=== PATIENT | female | born 1985 | race Caucasian/White ===

== ENCOUNTER 2018-02-13 00:21 | Emergency (ER) | payer OTHER ==
[2018-02-13 01:02] VITALS: BP 144/98; PULSE 72; TEMP 97.8; BMI 25.6
--- NOTE | 2018-02-13 01:05 | PDOC ---
History of Present Illness - General Chief Complaint: Respiratory Stated Complaint: S.O.B. Time Seen by Provider: 02/13/18 00:57 - History of Present Illness Initial Comments: 02/13/18 01:21 The patient is a 32 year old female with a history of Gallstone Pancreatitis s/ p cholecystectomy who presents for evaluation of abdominal pain. The patient notes that she began experiencing severe epigastric abdominal pain earlier this evening with associated SOB due to the severe abdominal pain prompting her presentation to the ED for further evaluation. She notes that her symptoms are similar to her prior episodes of pancreatitis. She notes that she has been drinking more alcohol lately as well. She states that her symptoms have significantly improved on presentation to the ED and is currently asymptomatic. She otherwise denies fevers, chills, SOB, chest pain, nausea, vomiting, or changes with urination or bowel movements. Past History - Past Medical History Allergies/Adverse Reactions: Allergies Allergy/AdvReac Type Severity Reaction Status Date / Time No Known Allergies Allergy Verified 02/13/18 01:02 Home Medications: Ambulatory Orders Ondansetron [Zofran Odt -] 4 mg SL TID #10 od.tablet 11/07/15 GI Disorders: Yes (pancreatitis/gallstones) - Immunization History Immunization Up to Date: Yes - Suicide/Smoking/Psychosocial Hx Smoking History: Never smoked Have you smoked in the past 12 months: No Information on smoking cessation initiated: No Hx Alcohol Use: No Drug/Substance Use Hx: No Substance Use Type: None Review of Systems - Review of Systems Comments:: 02/13/18 01:24 Constitutional: No fevers, chills, fatigue, malaise HEENT: No Rhinorrhea, nasal congestion, visual changes Cardiovascular: No chest pain, syncope, palpitations, lightheadedness Respiratory: No Cough, SOB, Hemoptysis, Gastrointestinal: Abdominal pain. No Nausea, Vomiting, Constipation, Diarrhea, Melena Genitourinary: No Dysuria, Frequency, Urgency, Hesitancy, Hematuria, Flank pain Musculoskeletal: No Myalgia, arthralgia Skin: No rashes, itching, bruising, pallor Neurologic: No Headache, Dizziness, Numbness, Weakness, or Tingling Psychiatric: No Hallucinations. No SI or HI *Physical Exam - Vital Signs Last Vital Signs Temp Pulse Resp BP Pulse Ox 97.8 F 72 18 144/98 100 02/13/18 00:50 02/13/18 00:50 02/13/18 00:50 02/13/18 00:50 02/13/18 00:50 - Physical Exam Comments: 02/13/18 01:25 General Appearance: Nourished. No Apparent Distress HEENT: EOMI, IRVIN. No Pharyngeal Erythema, Tonsillar Exudate, Tonsillar Erythema Neck: No Cervical Lymphadenopathy Respiratory/Chest: Lungs Clear, Normal Breath Sounds. No Crackles, Rales, Rhonchi, Wheezing Cardiovascular: Regular Rhythm, Regular Rate. No Murmur, Gallops, Rubs Gastrointestinal/Abdominal: Normal Bowel Sounds, Soft. No Guarding, Rebound, Tenderness Musculoskeletal: No CVA Tenderness Extremity: Normal Capillary Refill Integumentary: Normal Color, Dry, Warm Neurologic: Fully Oriented, Alert, Normal Mood/Affect, Normal Response, ED Treatment Course - LABORATORY CBC & Chemistry Diagram: 02/13/18 01:31 02/13/18 01:31 Medical Decision Making - Medical Decision Making 02/13/18 01:25 The patient is a 32 year old female with a history of Gallstone Pancreatitis s/ p cholecystectomy who presents for evaluation of abdominal pain. Differential includes but is not limited to: pancreatitis, gastritis, infectious, metabolic derangement. Given the patient's history and physical exam, we will obtain a cbc, cmp, lipase to evaluate further for possible etiologies. We will treat in the meantime with iv fluids and continue to monitor and reassess while here in the ED. 02/13/18 02:51 CBC, cmp, lipase are unremarkable. The patient continues to be asymptomatic. We are comfortable discharging the patient home at this time with GI follow up. We discussed the results, plan, and return precautions with the patient who voiced understanding and is agreeable with the plan. *DC/Admit/Observation/Transfer Diagnosis at time of Disposition: Abdominal pain Qualifiers: Abdominal location: unspecified location Qualified Code(s): R10.9 - Unspecified abdominal pain - Discharge Dispostion Disposition: HOME Condition at time of disposition: Stable Decision to Admit order: No - Referrals Referrals: Clemente Royal MD [Primary Care Provider] - Mo Mondragon MD [Staff Physician] - - Patient Instructions Printed Discharge Instructions: DI for Abdominal Pain-Adult Additional Instructions: Please return to the ER if you experience concerning or worsening symptoms including worsening abdominal pain, vomiting or fevers. Your lab results were normal here in the ER. It is important that you follow up with our GI specialist Dr. Mondragon within 2-3 days to discuss your ER visit and further management of your symptoms. - Post Discharge Activity
[2018-02-13] MEDS ORDERED: SODIUM CHLORIDE 1,000 ML IV STA (01:06)
--- NOTE | 2018-02-13 01:11 | PDOC ---
Attending Attestation - Resident Resident Name: To Mazariegos - ED Attending Attestation I have performed the following: I have examined & evaluated the patient, The case was reviewed & discussed with the resident, I agree w/resident's findings & plan, Exceptions are as noted - HPI HPI: 02/15/18 14:46 Ms Cabrales is a 32 yo F h/o gallstone pancreatitis s/p cholecystectomy who presents for evaluation of abdominal pain. Pt developed severe epigastric abdominal pain earlier this evening. These symptoms are similar to her prior symptoms when she developed pancreatitis. (+) alcohol use. Since presenting to the ER, her symptoms have resolved. No fevers, chills, nausea, vomiting, or diarrhea. - Physicial Exam PE: 02/13/18 01:11 GENERAL: The patient is in no acute distress. LUNGS: Breath sounds equal, clear to auscultation bilaterally. No wheezes, and no crackles. HEART:Regular rate and rhythm, normal S1 and S2 without murmur, rub or gallop. ABDOMEN: Soft, nontender to palpation EXTREMITIES: Normal range of motion, no edema. No clubbing or cyanosis. No erythema, or tenderness. NEUROLOGICAL: Cranial nerves II through XII grossly intact. Normal speech. No focal neurological deficits. MUSCULOSKELETAL: Back non-tender to palpation, no CVA tenderness SKIN: Warm, Dry, normal turgor, no rashes or lesions noted. - Medical Decision Making 02/13/18 01:25 The patient is a 32 year old female with a history of Gallstone Pancreatitis s/ p cholecystectomy who presents for evaluation of abdominal pain. Labs nml Pt symptoms have resolved Pt will be discharged to home
[2018-02-13 01:59] LABS: BASO % 1.3 % (0-2.0); HEMATOCRIT 39.8 % (32.4-45.2); HEMOGLOBIN 13.2 GM/dL (10.7-15.3); LYMPH % 30.5 % (8-40); MCH 28.9 pg (25.7-33.7); MCHC 33.2 g/dl (32.0-36.0); MEAN CELL VOLUME 87.2 fl (80-96); MEAN PLT VOLUME 9.2 fl (7.5-11.1); MONO % 9.8 % (3.8-10.2); NEUT % 52.4 % (42.8-82.8); PLATELET COUNT 252 K/MM3 (134-434); RBC 4.57 M/mm3 (3.60-5.2); RDW 13.9 % (11.6-15.6); WHITE BLOOD COUNT 5.1 K/mm3 (4.0-10.0)
[2018-02-13 02:22] LABS: ALBUMIN 3.6 g/dl (3.4-5.0); ANION GAP 5 (8-16); BLOOD UREA NITROGEN 17 mg/dL (7-18); CALCIUM 8.2 mg/dL (8.5-10.1); CHLORIDE 106 mmol/L (98-107); CO2 30 mmol/L (21-32); CREATININE 0.8 mg/dL (0.55-1.02); GLUCOSE,RANDOM 85 mg/dL (74-106); LIPASE 107 U/L (73-393); POTASSIUM 3.4 mmol/L (3.5-5.1); SGOT/AST 23 U/L (15-37); SGPT/ALT 18 U/L (12-78); SODIUM 141 mmol/L (136-145)
[2018-02-13 02:24] LABS: ALK PHOS 61 U/L (45-117); BILIRUBIN,TOTAL 0.3 mg/dL (0.2-1.0); TOT PROT 7.5 g/dl (6.4-8.2)
== END 2018-02-13 02:54 | disposition home or self-care (01) ==
LOC: JER 00:21
PROC: 3E0337Z Introduction of Electrolytic and Water Balance Substance into Peripheral Vein, Percutaneous Approach (ICD-10-PCS; principal; 2018-02-13)
DX: R10.9 Unspecified abdominal pain (principal); Z90.49 Acquired absence of other specified parts of digestive tract
CPT/HCPCS: 36415; 80053; 83690; 85025; 99282-25; J7030

== ENCOUNTER 2018-11-15 13:00 | Emergency (ER) | payer OTHER ==
[2018-11-15 13:17] VITALS: BMI 26.5
--- NOTE | 2018-11-15 13:54 | PDOC ---
History of Present Illness - General Chief Complaint: Rash Stated Complaint: ALLERGIC REACTION Time Seen by Provider: 11/15/18 13:26 History Source: Patient Exam Limitations: Clinical Condition - History of Present Illness Initial Comments: 11/15/18 13:49 Patient 23 weeks present with complaint of five-day history of nasal congestion, body aches,intermittent abdominal pains, runny nose and feeling of flu like symptoms. Patient denies any fevers. Patient reports she was seen by OB /[facility] [employer] [employer]PER[facility] 4 days ago for symptoms and was told to take Tylenol and increase fluid intake but now have diffuse red rashes all over her body after taking Tylenol. Patient denies itchiness to rash. Patient denies shortness of breath, choking sensation, tongue or throat swelling. Patient denies any other symptoms 11/15/18 14:30 Timing/Duration: other (5 days) Past History - Past Medical History Allergies/Adverse Reactions: Allergies Allergy/AdvReac Type Severity Reaction Status Date / Time No Known Allergies Allergy Verified 11/15/18 13:13 Home Medications: Ambulatory Orders Hydrocortisone 2.5% Lotion [Hytone 2.5% Lotion -] 1 applic TP BID PRN 7 Days #1 bottle 11/15/18 COPD: No GI Disorders: Yes (pancreatitis/gallstones) - Immunization History Immunization Up to Date: Yes - Suicide/Smoking/Psychosocial Hx Smoking History: Never smoked Have you smoked in the past 12 months: No Hx Alcohol Use: No Drug/Substance Use Hx: No Substance Use Type: None Review of Systems - Review of Systems Able to Perform ROS?: Yes Is the patient limited [place]ander proficient: No Constitutional: No: Chills, Fever, Malaise HEENTM: Yes: Symptoms Reported, See HPI, Nose Congestion, Throat Pain. No: Eye Pain, Blurred Vision, Tearing, Recent change in vision, Double Vision, Cataracts , Ear Pain, Ocular Prothesis, Ear Discharge, Nose Pain, Tinnitus, Nose Bleeding , Hearing Loss, Throat Swelling, Mouth Pain, Dental Problems, Difficulty Swallowing, Mouth Swelling, Other Respiratory: No: Symptoms reported, See HPI, Cough, Orthopnea, Shortness of Breath, SOB with Exertion, SOB at Rest, Stridor, Wheezing, Productive cough, Hemoptysis, Other Cardiac (ROS): No: Symptoms Reported, See HPI, Chest Pain, Edema, Irregular Heart Rate, Lightheadedness, Palpitations, Syncope, Chest Tightness, Other ABD/GI: No: Constipated, Diarrhea, Nausea, Vomiting, Abdominal cramping Integumentary: Yes: See HPI, Rash (red rashes all over the body). No: Bruising , Pruritus, Sweating Neurological: No: Numbness, Paresthesia, Dizziness All Other Systems: Reviewed and Negative *Physical Exam - Vital Signs Last Vital Signs Temp Pulse Resp BP Pulse Ox 98.2 F 92 H 20 113/68 100 11/15/18 13:16 11/15/18 13:16 11/15/18 13:16 11/15/18 13:16 11/15/18 13:16 - Physical Exam Comments: 11/15/18 13:52 GENERAL: Well developed, well nourished. Awake and alert. No acute distress. HEENT: Normocephalic, atraumatic. PERRLA, EOMI. No conjunctival pallor. Sclera are non-icteric. Moist mucous membranes. Oropharynx is clear. NECK: Supple. Full ROM. CARDIOVASCULAR: Regular rate and rhythm. No murmurs, rubs, or gallops. Distal pulses are 2+ and symmetric. PULMONARY: No evidence of respiratory distress. Lungs clear to auscultation bilaterally. No wheezing, rales or rhonchi. ABDOMINAL: Soft. Non-tender. Non-distended. No rebound or guarding. No organomegaly. Normoactive bowel sounds. MUSCULOSKELETAL Normal range of motion at all joints. EXTREMITIES: No cyanosis. No clubbing. No edema. No calf tenderness. SKIN: Diffuse maculopapular erythematous rash all over the body with no excoriations.Warm and dry. Normal capillary refill. NEUROLOGICAL: Alert, awake, appropriate. Gait is normal without ataxia. PSYCHIATRIC: Cooperative. Good eye contact. Appropriate mood General Appearance: Yes: Nourished, Appropriately Dressed. No: Apparent Distress Moderate Sedation - Procedure Monitoring Vital Signs: Procedure Monitoring Vital Signs Temperature 98.2 F 11/15/18 13:16 Pulse Rate 92 H 11/15/18 13:16 Respiratory Rate 20 11/15/18 13:16 Blood Pressure 113/68 11/15/18 13:16 O2 Sat by Pulse Oximetry (%) 100 11/15/18 13:16 Medical Decision Making - Medical Decision Making 11/15/18 13:53 Patient 23 weeks present with complaint of diffuse red rashes with outpatient follow-up at about after taking Tylenol 3 days ago status post going to [facility] office with URI symptoms and advised to take Tylenol. Exam significant for diffuse global maculopapular erythematous rash without excoriations. No pharyngeal erythema on exam. No evidence of anaphylactic reaction acute distress. Rapid strep ordered to rule out strep pharyngitis 11/15/18 14:34 Rapid strep negative. Patient is stable for discharge to labor floor to monitor baby due to complaint of intermittent abdominal pain. Rx for topical hydrocortisone sent to pharmacy for rash with dermatology follow-up. *DC/Admit/Observation/Transfer Diagnosis at time of Disposition: Dermatitis Abdominal pain Qualifiers: Abdominal location: unspecified location Qualified Code(s): R10.9 - Unspecified abdominal pain Qualifiers: Weeks of gestation: 23 weeks Qualified Code(s): Z3A.23 - 23 weeks gestation of - Discharge Dispostion Disposition: HOME Condition at time of disposition: Stable Decision to Admit order: No - Prescriptions Prescriptions: Hydrocortisone 2.5% Lotion [Hytone 2.5% Lotion -] 1 applic TP BID PRN 7 Days #1 bottle PRN Reason: rash - Referrals Referrals: Rosamaria Negrete MD [Staff Physician] - - Patient Instructions Additional Instructions: Your strep test was negative. Use medication as prescribed as needed for rash. Stopped taking Tylenol. Increase fluid intake. Follow-up with primary care - Post Discharge Activity
[2018-11-15 16:11] LABS: URINE APPEARANCE CLEAR; URINE BILIRUBIN NEGATIVE (<2.0 mg/dL); URINE COLOR YELLOW; URINE GLUCOSE (UA) NEGATIVE (NEGATIVE); URINE KETONE 1+ (NEGATIVE); URINE LEUK ESTERASE NEGATIVE (NEGATIVE); URINE NITRITE NEGATIVE (NEGATIVE); URINE PROTEIN NEGATIVE (NEGATIVE); URINE UROBILINOGEN NEGATIVE mg/dL (0.2-1.0)
[2018-11-15 16:53] VITALS: BP 111/77; PULSE 79; TEMP 97.4
== END 2018-11-15 16:30 | disposition home or self-care (01) ==
LOC: JERFT 13:00 → JER 13:00
DX: O26.892 Other specified pregnancy related conditions, second trimester (principal); O99.712 Diseases of the skin and subcutaneous tissue complicating pregnancy, second trimester; L30.9 Dermatitis, unspecified; Z3A.23 23 weeks gestation of pregnancy
CPT/HCPCS: 81003; 87070; 87880; 99281-25

== ENCOUNTER 2019-03-13 12:40 | Inpatient (IN) | payer OTHER ==
[2019-03-13 13:27] LABS: BASO % 0.5 % (0-2.0); EOS % 1.8 % (0-4.5); HEMATOCRIT 35.4 % (32.4-45.2); HEMOGLOBIN 11.7 GM/dL (10.7-15.3); MCH 27.9 pg (25.7-33.7); MCHC 33.1 g/dl (32.0-36.0); MEAN CELL VOLUME 84.3 fl (80-96); MEAN PLT VOLUME 10.2 fl (7.5-11.1); MONO % 9.8 % (3.8-10.2); NEUT % 41.9 % (42.8-82.8); PLATELET COUNT 190 K/MM3 (134-434); RDW 13.8 % (11.6-15.6); WHITE BLOOD COUNT 5.1 K/mm3 (4.0-10.0)
[2019-03-13 13:37] LABS: INR 0.89 (0.83-1.09); PROTHROMBIN TIME (PATIENT) 10.5 SEC (9.7-13.0)
[2019-03-13 13:44] LABS: CALCIUM 8.4 mg/dL (8.5-10.1); CREATININE 0.6 mg/dL (0.55-1.3)
[2019-03-13 14:06] VITALS: BMI 30.5
[2019-03-13] MEDS ORDERED: ONDANSETRON 4 MG/2 ML VIAL IVPUSH PRN (14:22)
[2019-03-13] MEDS ORDERED: ELECTROLYTE-148 SOLN 1,000 ML IV SCH (14:30)
[2019-03-13] MEDS ORDERED: CITRIC ACID/SODIUM CITRATE 30 ML UNIT-DOSE CUP PO ONE (14:33)
[2019-03-13] MEDS ORDERED: morphine SULFATE/PF 0.5 MG/ML (2cc Syringe - QUVA) ONE (14:35)
--- NOTE | 2019-03-13 14:39 | HP ---
Past Medical History - Primary Care Physician PCP:: Romel Almanza - Admission Chief Complaint: 33yo P1 with at EGA 39w2d admitted for repeat C/S. History of Present Illness: Prior C/S. 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: No: Alzheimer's, CVA, Dementia, Migraine, Multiple Sclerosis, Peripheral Neuropathy, Parkinson's, Seizure, Syncope, TIA, Vertigo, Other Cardiovascular: No: AFIB, Aneurysm, Aortic Insufficiency, Aortic Stenosis, CAD, CHF, Deep Vein Thrombosis, HTN, Hyperlipdemia, CA, Mitral Insufficiency, Mitral Stenosis, Murmur, Pulmonary Hypertension, Other Pulmonary: No: Asthma, Bronchitis, Cancer, COPD, O2 Dependent, Pneumonia, Previously Intubated, Pulmonary Embolus, Pulmonary Fibrosis, Sleep Apnea, Other Gastrointestinal: No: Ascites, Cancer, Constipation, Crohn's Disease, Diverticulitis, Diverticulosis, Esophageal Varices, Gastritis, GERD, GI Bleed, Hemorrhoids, Hiatal Hernia, Inflamatory Bowel Disease, Irritable Bowel Disease, Pancreatitis, Peptic Ulcer Disease, Ulcerative Colitis, Other Hepatobiliary: No: Cirrhosis, Cholelithiasis, Cholecystitis, Choledocholithiasis , Hepatitis A, Hepatitis B, Hepatitis C, Other Renal/: No: Renal Failure, Renal Inusuff, BPH, Cancer, Hematuria, Hemodialysis , Neurogenic Bladder, Renal Calculi, UTI, Other ...: 7 ...Para: 1 (C/S x 1) ...Term: 1 ...: 0 ...Spon : 0 ...Induced : 5 ...Multiple Gestation: 0 ...LMP: 06/12/18 ... Weeks Gestation by Dates: 39.2 ...EDC by Dates: 03/18/19 ...EDC by Sono: 03/21/19 Heme/Onc: No: Anemia, B12 Deficiency, Bleeding Disorder, Cancer, Current Chemotherapy, Current Radiation Therapy, Hemochromatosis, Hypercoaguable State, Myeloproliferative Synd, Sickle Cell Disease, Sickle Cell Trait, Thrombocytopenia, Other Infectious Disease: No: AIDS, C-Diff, Herpes Zoster, HIV, MRSA, STD's, Tuberculosis, VREF, Other Psych: No: Addictions, Anxiety, Bipolar, Depression, Panic, Psychosis, Schizophrenia, Other Musculoskeletal: No: Bursitis, Chronic low back pain, Hemiparesis, Hemiplegia, Osteoarthritis, Paraplegia, Other Rheumatology: No: Fibromyalgia, Gout, Lupus, Rheumatoid Arthritis, Sarcoidosis, Vasculitis, Other ENT: No: Allergic Rhinitis, Sinusitis, Other Endocrine: No: Sergio's Disease, Nell's Disease, Diabetes Insipidus, Diabetes Mellitus, Hyperparathyroidism, Hyperthyroidism, Hypothyroidism, Osteopenia, SIADH, Other Dermatology: No: Basal Cell, Cellulitis, Eczema, Melanoma, Psoriasis, Squamous Cell, Other - Past Surgical History Past Surgical History: Yes: Hx Myomectomy: No Hx Transabdominal Cerclage: No Additional Surgical History: cholecystectomy - Smoking History Smoking history: Never smoked Have you smoked in the past 12 months: No - Alcohol/Substance Use Hx Alcohol Use: No History of Substance Use: reports: None - Social History Usual Living Arrangement: Yes: With Significant Other, With Child ADL: Independent 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 [employer] History of Recent Travel: No Home Medications - Allergies Allergies/Adverse Reactions: Allergies Allergy/AdvReac Type Severity Reaction Status Date / Time No Known Allergies Allergy Verified 03/13/19 13:47 - Home Medications Home Medications: Ambulatory Orders Vitamins (Sjr) - 1 tab PO DAILY 03/13/19 Family Disease History - Family Disease History Family History: Unremarkable Review of Systems - Review of Systems Constitutional: reports: No Symptoms Eyes: reports: No Symptoms HENT: reports: No Symptoms Neck: reports: No Symptoms Cardiovascular: reports: No Symptoms Respiratory: reports: No Symptoms Gastrointestinal: reports: No Symptoms Genitourinary: reports: No Symptoms Breasts: reports: No Symptoms Reported Musculoskeletal: reports: No Symptoms Integumentary: reports: No Symptoms Neurological: reports: No Symptoms Endocrine: reports: No Symptoms Hematology/Lymphatic: reports: No Symptoms Psychiatric: reports: No Symptoms (0) Pain Intensity: 0 Physical Exam - Maternity Vital Signs: Vital Signs Temperature 98.8 F 03/13/19 13:00 Pulse Rate 95 H 03/13/19 13:00 Respiratory Rate 20 03/13/19 13:00 Blood Pressure 124/79 03/13/19 13:00 O2 Sat by Pulse Oximetry (%) Constitutional: Yes: Well Nourished, No Distress, Calm Eyes: Yes: WNL, Conjunctiva Clear HENT: Yes: WNL, Atraumatic, Normocephalic Neck: Yes: WNL, Supple, Trachea Midline Cardiovascular: Yes: WNL, Regular Rate and Rhythm Lungs: Clear to auscultation, Normal air movement Breast(s): Yes: WNL - Abdominal Exam/OB Fundal Height: 39 Number of Fetuses: Single Presentation: Vertex Contractions: No Heart Rate (range): 130 Heart Rate Location: Midline Category: I Accelerations: Non-Uniform Decelerations: None - Vaginal Exam/OB Vaginal Bleediing: No Speculum Exam: No Amniotic Membrane Status: Intact Presentation: Vertex/Position - Physical Exam Musculoskeletal: Yes: WNL Extremities: Yes: WNL Edema: No Integumentary: Yes: WNL Deep Tendon Reflex Grade: Normal +2 ...Motor Strength: WNL Psychiatric: Yes: WNL, Alert, Oriented - Labs Lab Results: CBC, BMP 03/13/19 13:05 03/13/19 13:05 Hemorrhage Risk Assessment - Risk Factors Medium Risk Factors: Yes: Prior , uterine surgery,or multiple laparotomies High Risk Factors: Yes: None Risk Score: 1 Risk Level: Medium Risk Imaging - Results Ultrasound: Report Reviewed Assessment/Plan 33yo P1 with at EGA 39w2d admitted for repeat C/S. We discussed the risks and benefits of C/S at length, including but not limited to scarring, pain , bleeding, infection, injury to underlying organs and structures, need for additional surgery to repair/treat any problems or complications, complications/injuries, etc. The pt verbalized her understanding and requested to proceed with surgery. The pt is aware that all surgeries have risks and no guarantees can be provided.
[2019-03-13] MEDS ORDERED: ceFAZolin SODIUM 1 GM VIAL ONE (14:45)
[2019-03-13] MEDS ORDERED: OXYTOCIN 10 UNITS/ML VIAL ONE ×2 (15:04→15:15)
[2019-03-13] MEDS ORDERED: KETOROLAC TROMETHAMINE 30 MG/1 ML VIAL ONE (15:15)
[2019-03-13] MEDS ORDERED: LIDOCAINE HCL/PF 2% SDV 5ML VIAL ONE (15:15)
[2019-03-13] MEDS ORDERED: OXYTOCIN 20 UNITS in 0.9% NS 20 UNIT/1,000 ML INFUS.BAG IV ONE (16:14)
[2019-03-13] MEDS ORDERED: IBUPROFEN 800 MG/8 ML IJ IVPB PRN (16:19)
[2019-03-13] MEDS ORDERED: WITCH HAZEL 50% (TUCKS) 40 PAD/JAR PAD TP PRN (16:19)
[2019-03-13] MEDS ORDERED: BENZOCAINE 20% 57 GM BOTTLE TP PRN (16:19)
[2019-03-13] MEDS ORDERED: BENZOCAINE 28 GM HEMORRHOIDAL OINTMENT TP PRN (16:19)
[2019-03-13] MEDS ORDERED: METHYLERGONOVINE MALEATE 0.2 MG/1 ML AMP IM PRN (16:19)
--- NOTE | 2019-03-13 16:27 | OP ---
Operative Note - Note: Operative Date: 03/13/19 Pre-Operative Diagnosis: at EGA 39w2d, prior C/S Operation: Repeat LT C/S Findings: Live baby girl, vtx presentation, no meconium in amniotic fluids, normal ut/ tubes/ovaries. 9-9, Wt 6lb 4oz Post-Operative Diagnosis: Same as Pre-op Surgeon: Romel Almanza Independent Contractor: Tiffani Campos Anesthesiologist/[employer] DESSERT: Alejandra Pro Anesthesia: Spinal Specimens Removed: Placenta Estimated Blood Loss (mls): 600 Drains & Tubes with Location: [place] cath Drains, Volume Out (mls): 800 Blood Volume Replaced (mls): 0 Fluid Volume Replaced (mls): 1,500 Operative Report Dictated: Yes
[2019-03-13] MEDS ORDERED: OXYTOCIN 20 UNITS in 0.9% NS 20 UNIT/1,000 ML INFUS.BAG IV SCH (16:30)
--- NOTE | 2019-03-14 02:15 | PN ---
Post Progress Note - Subjective Subjective: Patient without acute complaints. Tolerating clears, without nausea or vomiting No voiding, bolivar in place draining clear fluid No ambulation or flatus yet. Denies fevers or chills. Pain well controlled. Post Day: 1 Type of Delivery: Repeat C/S Vital Signs: Vital Signs Temperature 99.2 F 03/14/19 01:09 Pulse Rate 72 03/14/19 01:09 Respiratory Rate 18 03/14/19 01:59 Blood Pressure 124/77 03/14/19 01:09 O2 Sat by Pulse Oximetry (%) 99 03/13/19 17:30 Breast Exam: Yes: Soft Uterus: Yes: Fundus Firm, Fundus below umbilicus Incision: Yes: Dressing dry and intact Abdomen/GI: Yes: Abdomen soft, Abdominal Distention (mild soft), Tender (mild incisional), Passing flatus, Tolerating PO (clears) Lochia: Yes: Rubra Lochia, amount: Small Extremities: Yes: Calves non-tender, Edema (trace) - Labs Labs: CBC WBC 5.1 K/mm3 (4.0-10.0) 03/13/19 13:05 RBC 4.20 M/mm3 (3.60-5.2) 03/13/19 13:05 Hgb 11.7 GM/dL (10.7-15.3) 03/13/19 13:05 Hct 35.4 % (32.4-45.2) 03/13/19 13:05 MCV 84.3 fl (80-96) 03/13/19 13:05 MCH 27.9 pg (25.7-33.7) 03/13/19 13:05 MCHC 33.1 g/dl (32.0-36.0) 03/13/19 13:05 RDW 13.8 % (11.6-15.6) 03/13/19 13:05 Plt Count 190 K/MM3 (134-434) D 03/13/19 13:05 MPV 10.2 fl (7.5-11.1) D 03/13/19 13:05 Absolute Neuts (auto) 2.1 K/mm3 (1.5-8.0) 03/13/19 13:05 Neutrophils % 41.9 % (42.8-82.8) L D 03/13/19 13:05 Lymphocytes % 46.0 % (8-40) H D 03/13/19 13:05 Monocytes % 9.8 % (3.8-10.2) 03/13/19 13:05 Eosinophils % 1.8 % (0-4.5) 03/13/19 13:05 Basophils % 0.5 % (0-2.0) 03/13/19 13:05 Nucleated RBC % 0 % (0-0) 03/13/19 13:05 Assessment/Plan 33 yo POD # 1 s/p R CD afebrile, vital signs stable, doing well 1. Continue routine postoperative care. Labile BPs, no s/sx of PEC. Labetalol with parameters set. 2. Follow up AM CBC 3. Rh positive status, no rhogam indicated. 4. Encourage ambulation and incentive spirometer use 5. Continue oral pain medication 6. Anticipate discharge home postoperative day #3 or #4
[2019-03-14] MEDS: ACETAMINOPHEN 325 MG TABLET (FP) PO PRN ×3 (07:13→18:22)
[2019-03-14 08:15] LABS: BASO % 0.6 % (0-2.0); EOS % 1.9 % (0-4.5); HEMATOCRIT 31.7 % (32.4-45.2); HEMOGLOBIN 10.5 GM/dL (10.7-15.3); LYMPH % 31.9 % (8-40); MCH 27.6 pg (25.7-33.7); MCHC 33.1 g/dl (32.0-36.0); MEAN CELL VOLUME 83.4 fl (80-96); MEAN PLT VOLUME 10.6 fl (7.5-11.1); MONO % 9.9 % (3.8-10.2); NEUT % 55.7 % (42.8-82.8); PLATELET COUNT 164 K/MM3 (134-434); RDW 13.7 % (11.6-15.6); WHITE BLOOD COUNT 6.5 K/mm3 (4.0-10.0)
[2019-03-14] MEDS: PRENATAL VITAMINS W/ FOLIC ACID TABLET (FP) PO SCH (09:12)
[2019-03-14] MEDS: SIMETHICONE 80 MG TAB.CHEW (FP) PO PRN ×3 (09:12→18:22)
[2019-03-14] MEDS: oxyCODONE HCL 5 MG TABLET PO PRN ×3 (09:12→18:22)
[2019-03-14] MEDS: ENOXAPARIN NA (PORCINE) 40 MG/0.4 ML DISP.SYRIN SQ SCH (09:15)
--- NOTE | 2019-03-14 11:26 | OP ---
DATE OF OPERATION: 03/13/2019 PREOPERATIVE DIAGNOSIS: at the estimated gestational age of 39 weeks and 2 days, previous section. Patient admitted for repeat section. POSTOPERATIVE DIAGNOSIS: at the estimated gestational age of 39 weeks and 2 days, previous section. Patient admitted for repeat section, delivered. PROCEDURE: Repeat low transverse section via a Pfannenstiel skin incision. SURGEON: Romel Almanza M.D. JACQUARD LOOM CARD CHANGER: Tiffani Campos M.D. ANESTHESIOLOGIST: Miguel A Naranjo ANESTHESIA: Spinal. COMPLICATIONS: None. ESTIMATED BLOOD LOSS: 600 mL INTRAVENOUS FLUIDS: 1500 mL URINE OUTPUT: Clear urine 800 mL at the end of the procedure. PATHOLOGY: Placenta. FINDINGS: Live baby girl in vertex presentation, no meconium and amniotic fluids, normal uterus, tubes and ovaries. are 9 and 9. Baby's weight is 6 pounds and 4 ounces. PROCEDURE: The patient was met preoperatively. Risks, benefits and alternatives of surgery were discussed in detail. All the questions were answered. The patient was then brought to the OR with the IV running. She was placed on the surgical table in the seating position. The spinal anesthesia was achieved without difficulty. The patient was then placed in the supine position with the leftward tilt. She was prepped and draped in the usual sterile fashion. A Gilman catheter was inserted into the bladder and left to drain to gravity. The timeout was conducted as per standard protocol. The surgeons then proceeded with the operation. A Pfannenstiel skin incision was made with the knife approximately 2 cm above the pubic symphysis. The incision was taken down to the level of the fascia. The fascia was incised in the midline. The incision was extended bilaterally using River scissors. The fascia was dissected away from the rectus muscles superiorly and inferiorly using sharp and blunt dissection. The rectus muscles were in the midline. The peritoneum was identified and entered sharply. The peritoneal incision was extended superiorly and inferiorly using Metzenbaum scissors. The bladder peritoneum was then dissected away from the lower uterine segment using sharp dissection. The bladder was reflected downwards. The uterus was incised transversely in the lower uterine segment. The incision was extended bilaterally using bandage scissors. The amniotic sac was ruptured. The amniotic fluid was noted to be clear. The baby was then delivered from vertex presentation without complications. The umbilical cord was clamped and cut. The baby was crying spontaneously and was handed to the awaiting manager data center. The placenta was then expressed manually without complications. The uterus was cleared of all clots and debris using laparotomy laps. The uterine incision was repaired using a 0 Biosyn suture with good hemostasis and approximation. The uterine incision was imbricated using a secondary layer of closure with a 0 Biosyn suture. Good hemostasis was confirmed. The bladder peritoneum was reapproximated using a 0 Biosyn suture. The operative site was irrigated using copious amounts of normal saline. Good hemostasis was confirmed once again. The parietal peritoneum was reapproximated using 2-0 chromic suture. The rectus muscles were approximated in the midline using several interrupted 2-0 chromic sutures. The fascia was closed using a 0 Vicryl suture with a running stitch. Good hemostasis and approximation were confirmed. The subcutaneous adipose tissues and the Josselin fascia were approximated using several interrupted 0 Vicryl sutures. The skin was closed using a 4-0 Vicryl suture with a subcutaneous stitch. The patient tolerated the procedure well. Sponge, lap, needle counts were correct. The patient was transferred to the recovery room in stable condition. Brian [id number]
[2019-03-14] MEDS ORDERED: BISACODYL 10 MG SUPP.RECT RC PRN (16:19)
[2019-03-14] MEDS: IBUPROFEN 600 MG TABLET (FP) PO PRN (19:57)
[2019-03-15] MEDS: SIMETHICONE 80 MG TAB.CHEW (FP) PO PRN ×4 (06:16→21:11)
[2019-03-15] MEDS: IBUPROFEN 600 MG TABLET (FP) PO PRN ×4 (06:17→21:15)
[2019-03-15] MEDS: oxyCODONE HCL 5 MG TABLET PO PRN ×4 (06:18→21:11)
--- NOTE | 2019-03-15 06:47 | PN ---
Progress Note (short form) - Note Progress Note: pod 2 , no c/o ambulating, tolerated diet , passing gas CBC, BMP 03/14/19 07:16 03/13/19 13:05 Last Vital Signs Temp Pulse Resp BP Pulse Ox 98.8 F 91 H 20 133/82 99 03/15/19 06:19 03/14/19 21:48 03/14/19 21:48 03/14/19 21:48 03/13/19 17:30 abdomen soft, no distension, no cva incision dry, clean , no discharge no calf tenderness no excess vaginal bleeding plan ambulate , cbc in am pain management
[2019-03-15] MEDS: PRENATAL VITAMINS W/ FOLIC ACID TABLET (FP) PO SCH (10:33)
[2019-03-15] MEDS: ENOXAPARIN NA (PORCINE) 40 MG/0.4 ML DISP.SYRIN SQ SCH (10:36)
[2019-03-16] MEDS: SIMETHICONE 80 MG TAB.CHEW (FP) PO PRN ×2 (05:10→09:25)
[2019-03-16] MEDS: oxyCODONE HCL 5 MG TABLET PO PRN (05:10)
[2019-03-16] MEDS: IBUPROFEN 600 MG TABLET (FP) PO PRN ×2 (05:11→09:26)
[2019-03-16 07:58] LABS: BASO % 0.5 % (0-2.0); HEMATOCRIT 32.8 % (32.4-45.2); MCH 27.9 pg (25.7-33.7); MCHC 33.4 g/dl (32.0-36.0); MEAN CELL VOLUME 83.5 fl (80-96); MEAN PLT VOLUME 9.1 fl (7.5-11.1); MONO % 8.6 % (3.8-10.2); NEUT % 54.9 % (42.8-82.8); PLATELET COUNT 244 K/MM3 (134-434); RBC 3.93 M/mm3 (3.60-5.2); RDW 14.2 % (11.6-15.6); WHITE BLOOD COUNT 6.9 K/mm3 (4.0-10.0)
[2019-03-16] MEDS: ENOXAPARIN NA (PORCINE) 40 MG/0.4 ML DISP.SYRIN SQ SCH (09:25)
[2019-03-16] MEDS: PRENATAL VITAMINS W/ FOLIC ACID TABLET (FP) PO SCH (09:25)
[2019-03-16] MEDS: ACETAMINOPHEN 325 MG TABLET (FP) PO PRN (09:26)
--- NOTE | 2019-03-16 09:47 | DS ---
Physical Exam-ART SPECIALIST Vital Signs: Vital Signs Temperature 98 F 03/15/19 22:00 Pulse Rate 85 03/15/19 22:00 Respiratory Rate 18 03/15/19 22:00 Blood Pressure 135/93 03/15/19 22:00 O2 Sat by Pulse Oximetry (%) 99 03/13/19 17:30 Constitutional: Yes: Well Nourished, No Distress, Calm Eyes: Yes: WNL HENT: Yes: WNL, Atraumatic, Normocephalic Neck: Yes: WNL, Supple, Trachea Midline Cardiovascular: Yes: WNL, Regular Rate and Rhythm Respiratory: Yes: WNL, Regular, CTA Bilaterally Gastrointestinal: Yes: WNL, Normal Bowel Sounds, Soft Renal/: Yes: WNL Pelvis: Yes: WNL External Genitalia: Yes: Normal ....Post : Yes: Uterus firm, Uterus non-tender Breast(s): Yes: WNL Musculoskeletal: Yes: WNL Extremities: Yes: WNL Edema: No Integumentary: Yes: WNL Wound/Incision: Yes: Clean/Dry, Well Approximated Neurological: Yes: WNL, Alert, Oriented ...Motor Strength: WNL Psychiatric: Yes: WNL, Alert, Oriented Labs: CBC, BMP 03/16/19 07:22 03/13/19 13:05 Delivery - Delivery Vaginal Delivery: No Problems Section: Primary Type of Anesthesia: Spinal Episiotomy/Laceration: None EBL (cc): 600 Delivery, Single - Stages of Labor Date of Delivery: 03/13/19 Time of Delivery: 15:14 Time Placenta Delivered: 15:15 - Condition of Infant Clinical Science Consultant/Tone Artist Apprentice Present: Yes Name: Amalia Rock Infant Gender: Female Weight: 6 lb 4 oz Position: Right, OT Total Hours ROM (Hrs/Mins): 0hrs 2min - 1 Minute Total Score: 9 5 Minutes Total Score: 9 - [place] Feeding Plan Initial Plan: Elected not to breastfeed exclusively throughout hospitalization Remarks - Remarks Remarks: Instructed on Preeclamptic precautions She has BP measuring device at home Instructed nothing vaginaly for 6weeks Return to the office in 1 week for incision and BP check Discharge Summary Reason For Visit: REPEAT Condition: Good - Instructions Diet, Activity, Other Instructions: Physical activity Follow up for incision check in 1 week. Resume your normal everyday activity as tolerated no heavy lifting or exercise until seen by your surgeon. You may walk unlimited christopher of and climb stairs. You may resume driving the car when you feel safe and comfortable behind the wheel. No sexual activity as instructed. Wound care If you have a bandage, leave it on, and keep dry for 48-72 hours. After that time discard the outer bandage. If they are tapes on the skin under the out of bandage leave them in place. They will peel off in the next 7 to 10 days. Do Not Peel them off. You may shower the day after surgery. If there are tapes present on the skin, you may shower over them. Diet There are no dietary restrictions. Eat healthy, high-fiber foods. Drink 6 to 8 glasses of liquid each day. This will assist in keeping your bowels are regular. Pain management You may take Tylenol or acetaminophen or Ibuprofen (for example, Motrin, Advil etc.) from my pain prescription medication is ordered should be taken as prescribed for moderate to severe pain. Call MD for any of the following: Severe pain not relieved by medication Fever of 101 or higher Excessive bleeding or drainage on dressing Inability to urinate Referrals: Elizabeth Gordillo MD [Staff Physician] - Disposition: HOME - Home Medications Comprehensive Discharge Medication List: Ambulatory Orders Vitamins (Sjr) - 1 tab PO DAILY 03/13/19
[2019-03-16 09:53] VITALS: BP 135/89; PULSE 79; TEMP 98.1
--- NOTE | 2019-03-19 16:36 | PATH ---
Surgical Pathology Report Patient Name: CHRISTIANO MCLAUGHLIN [facility]. Rec. #: [id number] /Age/Gender: 1985 (Age: 33) / F Account: [id number] Location: [facility] OBS/VICE PRESIDENT INTEGRATED Taken: 03/13/2019 Received: 03/14/2019 Reported: 03/19/2019 Physicians: Romel Almanza M.D. Specimen(s) Received PLACENTA Clinical History Final Diagnosis PLACENTA, SECTION: 501 G THIRD TRIMESTER PLACENTA WITH TRIVASCULAR UMBILICAL CORD AND UNREMARKABLE PLACENTAL MEMBRANES. Electronically Signed Gabbi Munoz M.D. Gross Description The specimen is received fresh labeled placenta and is a 501 gram, 23.0 x 15.0 x 2.2 cm. placenta with attached membranes and umbilical cord. The attached membranes are fernandez, translucent with focal opacities and insert marginally. The umbilical cord measures 34 cm. in length and averages 1 cm. in diameter. The cord inserts eccentrically, 2.5 cm. to the nearest margin. No true knots or strictures are identified. Cut surface of the umbilical cord reveals 3 vessels. The surface is olivia-blue with minimal fibrin deposition and appropriate caliber vessels. The maternal surface is red-brown with focal defects. Sectioning reveals red-brown, spongy parenchyma. No lesions are identified. Cemetery Worker sections are submitted in three cassettes as follows: 1- membrane rolls and umbilical cord; 2-3- full thickness sections of placenta. /03/18/2019 [facility]03/18/2019
== END 2019-03-16 11:55 | disposition home or self-care (01) | DRG 788 ==
LOC: JLDR 12:40 → J3W 18:09
PROVIDERS: ADMIT Obstetrics & Gynecology; ATTEND Obstetrics & Gynecology
PROC: 10D00Z1 Extraction of Products of Conception, Low, Open Approach (ICD-10-PCS; principal; 2019-03-13)
DX: O34.211 Maternal care for low transverse scar from previous cesarean delivery (principal); Z3A.39 39 weeks gestation of pregnancy; Z37.0 Single live birth
CPT/HCPCS: 36415; 80048; 85025; 85610; 85730; 86593; 86850; 86900; 86901; 88307-TC

== ENCOUNTER 2019-10-12 05:05 | Emergency (ER) | payer OTHER ==
[2019-10-12 05:51] VITALS: PULSE 92; BMI 25.4
[2019-10-12] MEDS ORDERED: ACETAMINOPHEN 1000 MG/100 ML VIAL (NON FORMULARY) IVPB ONE (07:57)
[2019-10-12] MEDS ORDERED: SODIUM CHLORIDE 1,000 ML IV STA (07:57)
[2019-10-12] MEDS ORDERED: ACETAMINOPHEN INJECTION 100 ML IVPB ONE (08:31)
--- NOTE | 2019-10-12 08:49 | PDOC ---
History of Present Illness - General Chief Complaint: Pain, Acute Stated Complaint: LOW BACK PAIN Time Seen by Provider: 10/12/19 07:45 History Source: Patient Exam Limitations: No Limitations - History of Present Illness Initial Comments: 10/12/19 08:44 Patient is 34F with history of HIV (newly diagnosed 2 months ago, missed 2 weeks of HAART in that time, currently taking medication) here today with back pain, leg pain, subjective fevers. Pain in back is bilateral in lower back. Denies urinary/fecal incontinence/retention. Denies IVDU, says she contracted HVI through sex. Denies leg weakness. Patient denies other know sick contacts. Denies other medical problems. Denies dysuria, vaginal bleeding. LMP is current. Past History - Past Medical History Allergies/Adverse Reactions: Allergies Allergy/AdvReac Type Severity Reaction Status Date / Time No Known Allergies Allergy Verified 10/12/19 05:51 Home Medications: Ambulatory Orders Bictegrav/Emtricit/Tenofov Ala [Biktarvy 50-200-25 mg Tablet] 1 each PO DAILY Asthma: No Cancer: No Cardiac Disorders: No COPD: No Diabetes: No GI Disorders: Yes (pancreatitis/gallstones) HTN: No Seizures: No Thyroid Disease: No - Immunization History Immunization Up to Date: Yes - Psycho Social/Smoking Cessation Hx Smoking History: Never smoked Have you smoked in the past 12 months: No Hx Alcohol Use: No Drug/Substance Use Hx: No Substance Use Type: None Hx Substance Use Treatment: No Review of Systems - Review of Systems Able to Perform ROS?: Yes Comments:: 10/12/19 08:48 GENERAL/CONSTITUTIONAL: +fever no chills. No weakness. HEAD, EYES, EARS, NOSE AND THROAT: No change in vision. No sore throat. CARDIOVASCULAR: No chest pain or shortness of breath RESPIRATORY: No cough, wheezing, or hemoptysis. GASTROINTESTINAL: No nausea, vomiting, diarrhea or constipation. GENITOURINARY: No dysuria, frequency, or change in urination. MUSCULOSKELETAL: No joint or muscle swelling. +back pain SKIN: No rash NEUROLOGIC: No headache, vertigo, loss of consciousness, or change in strength/ sensation. ENDOCRINE: No increased thirst. No abnormal weight change ALLERGIC/IMMUNOLOGIC: No hives or skin allergy. *Physical Exam - Vital Signs Last Vital Signs Temp Pulse Resp BP Pulse Ox 98.3 F 92 H 18 139/94 98 10/12/19 05:49 10/12/19 05:49 10/12/19 05:49 10/12/19 05:49 10/12/19 05:49 - Physical Exam 10/12/19 08:49 GENERAL: Awake, alert, and fully oriented, in no acute distress HEAD: No signs of trauma, normocephalic, atraumatic EYES: PERRLA, EOMI, sclera anicteric, conjunctiva clear ENT: Auricles normal inspection, hearing grossly normal, nares patent, oropharynx clear without exudates. Moist mucosa NECK: Normal ROM, supple, no lymphadenopathy, JVD, or masses LUNGS: No distress, speaks full sentences, clear to auscultation bilaterally HEART: Regular rate and rhythm, normal S1 and S2, no murmurs, rubs or gallops, peripheral pulses normal and equal bilaterally. ABDOMEN: Soft, nontender, normoactive bowel sounds. No guarding, no rebound. No masses BACK: Tender in paraspinal area, no midline tenderness, no signs of trauma EXTREMITIES: Normal inspection, Normal range of motion, no edema. No clubbing or cyanosis. NEUROLOGICAL: Cranial nerves II through XII grossly intact. Normal speech, normal gait, no focal sensorimotor deficits SKIN: Warm, Dry, normal turgor, no rashes or lesions noted. ED Treatment Course - LABORATORY CBC & Chemistry Diagram: 10/12/19 08:30 10/12/19 08:30 - Medications Given in the ED: ED Medications Discontinued Medications Generic Name Dose Route Start Last Admin Trade Name Priyank PRN Reason Stop Dose Admin Acetaminophen 1,000 mg 10/12/19 07:57 10/12/19 08:40 Ofirmev Injection - IVPB 10/12/19 07:58 1,000 mg ONCE ONE Administration Medical Decision Making - Medical Decision Making 10/12/19 08:50 Patient is 34F with history of HIV here today with back pain, subjective fever. Vitals normal in triage. Tender along paraspinal muscles, no red flags for back pain. Patient generally appears well. DDx includes, but is not limited to: msk pain, muscle strain, influenza, UTI, pyelo. Will treat with fluids and tylenol. Will evaluate with UA UC basic labs and flu. 10/12/19 10:13 CBC normal, slight leukopenia CMP normal UA shows hematuria, currently menstruating Patient refusing tylenol due to concerns over liver/kidney function. Patient states that she feels much better after 500cc of fluids. Upreg negative. Will discharge home with return precautions. Discharge - Discharge Information Problems reviewed: Yes Clinical Impression/Diagnosis: URI (upper respiratory infection) Qualifiers: URI type: unspecified viral URI Qualified Code(s): J06.9 - Acute upper respiratory infection, unspecified HIV (human immunodeficiency virus infection) Qualifiers: HIV symptom status: asymptomatic Qualified Code(s): Z21 - Asymptomatic human immunodeficiency virus [HIV] infection status Condition: Good Disposition: HOME - Admission No - Follow up/Referral - Patient Discharge Instructions Patient Printed Discharge Instructions: DI for Viral Upper Respiratory Infection -- Adult Additional Instructions: Please return if you have any new, worsening or concerning symptoms. Please follow up with your primary care doctor this week. - Post Discharge Activity
--- NOTE | 2019-10-12 08:55 | PDOC ---
Attending Attestation - Resident Resident Name: Trey Chisholm - ED Attending Attestation I have performed the following: I have examined & evaluated the patient, The case was reviewed & discussed with the resident, I agree w/resident's findings & plan, Exceptions are as noted
[2019-10-12 09:23] LABS: HEMATOCRIT 37.9 % (32.4-45.2); HEMOGLOBIN 12.8 GM/dL (10.7-15.3); MCH 29.6 pg (25.7-33.7); MCHC 33.8 g/dl (32.0-36.0); MEAN CELL VOLUME 87.6 fl (80-96); MEAN PLT VOLUME 8.7 fl (7.5-11.1); PLATELET COUNT 248 K/MM3 (134-434); RBC 4.33 M/mm3 (3.60-5.2); RDW 13.1 % (11.6-15.6); WHITE BLOOD COUNT 3.2 K/mm3 (4.0-10.0)
[2019-10-12 09:29] LABS: EPI CELLS 7.8 /HPF (0-5/HPF); HYALINE CASTS 4 /lpf (0-8); URINE APPEARANCE CLOUDY; URINE BACTERIA 80.2 /hpf (NEGATIVE); URINE BILIRUBIN NEGATIVE (NEGATIVE); URINE COLOR YELLOW; URINE GLUCOSE (UA) NEGATIVE (NEGATIVE); URINE KETONE NEGATIVE (NEGATIVE); URINE LEUK ESTERASE NEGATIVE (NEGATIVE); URINE NITRITE NEGATIVE (NEGATIVE); URINE PROTEIN NEGATIVE (NEGATIVE); URINE RBC 3 /hpf (0-4); URINE UROBILINOGEN 0.2 mg/dL (0.2-1.0); URINE WBC 2 /hpf (0-5)
[2019-10-12 09:46] LABS: ALBUMIN 3.7 g/dl (3.4-5.0); BILIRUBIN,TOTAL 0.2 mg/dL (0.2-1); BLOOD UREA NITROGEN 9.4 mg/dL (7-18); CALCIUM 8.7 mg/dL (8.5-10.1); CREATININE 0.7 mg/dL (0.55-1.3); POTASSIUM 3.7 mmol/L (3.5-5.1)
--- NOTE | 2019-10-12 09:58 | PDOC ---
Documentation entered by Sanjana Varela SCRIBE, acting as scribe for Roxy Stover DO. Roxy Stover DO: This documentation has been prepared by the Nichole stearns Nirvannie, SCRIBE, under my direction and personally reviewed by me in its entirety. I confirm that the documentation accurately reflects all work, treatment, procedures, and medical decision making performed by me. Attending Attestation - Resident Resident Name: Trey Chisholm - ED Attending Attestation I have performed the following: I have examined & evaluated the patient, The case was reviewed & discussed with the resident, I agree w/resident's findings & plan, Exceptions are as noted - HPI HPI: 10/12/19 09:47 The patient is a 34 year old female, with a significant past medical history of HIV (diagnosed 2 months ago, noncompliant x2 weeks at that time, currently compliant), who presents to the emergency department with 1 day of lower back pain and subjective fevers. Patient describes her back pain has localized to the thoracic and lumbar region with radiation to her bilateral lower extremities. She denies any focal weakness, urinary/bowel incontinence, change in sensation, dizziness, chest pain, or shortness of breath. Allergies: NKDA Primary Care Physician: Dr. Tay Steve - Physicial Exam PE: 10/12/19 09:47 Constitutional: Awake, alert, oriented. No acute distress. Head: Normocephalic. Atraumatic Eyes: PERRL. EOMI. Conjunctivae are not pale. ENT: Mucous membranes are moist and intact. Posterior pharynx without exudates or erythema. Uvula midline. Neck: Supple. Full ROM. No lymphadenopathy. Cardiovascular: Regular rate. Regular rhythm. S1, S2 regular. Distal pulses are 2+ and symmetric. Pulmonary/Chest: No evidence of respiratory distress. Clear to auscultation bilaterally No wheezing, rales or rhonchi. Abdominal: Soft and non-distended. There is no tenderness. No rebound, guarding or rigidity. No organomegaly. No palpable masses. Good bowel sounds. Back: Bilateral thoracic and lumbar paraspinal tenderness. Bilateral CVA tenderness. No midline tenderness. Musculoskeletal: No edema. No cyanosis. No clubbing. Full range of motion in all extremities. No calf tenderness. Radial/pedal pulses are intact and 2+ bilaterally Skin: Skin is warm and dry. No petechiae. No purpura. Neurological: Alert and oriented to person, place, and time. Cranial nerves II -XII are grossly intact. Normal speech. Strength is grossly symmetric. No sensory deficits. Psychiatric: Good eye contact. Normal interaction, affect and behavior. - Medical Decision Making 10/12/19 09:53 a/p: 34yo female with back pain, leg pain -pt is HIV + -pt was sick a few weeks ago and held her HIV meds about a month ago for 2 weeks -pt states she restarted her meds 2 weeks ago, but has had some paraspinal back pain and pain in her legs -pt concerned about kidney and liver function -has had uri symptoms -no n/v/d recently, no dysuria, no abd pain -pt is nontoxic in appearance -no rashes, no oral lesions -labs sent and reviewed, wbc 3.2 -renal and liver function formal 10/12/19 09:56 some blood in the urine, pt currently menstruating pt given po challenge will give toradol for pain pt follows with ID at [facility] Day 10/12/19 10:15 pt stable for dc to home
[2019-10-12 10:36] VITALS: BP 121/81; TEMP 98.1
== END 2019-10-12 10:39 | disposition home or self-care (01) ==
LOC: JER 05:05 → SUPCPDRO 05:05 → JER 10:39
PROC: 3E0337Z Introduction of Electrolytic and Water Balance Substance into Peripheral Vein, Percutaneous Approach (ICD-10-PCS; principal; 2019-10-12)
PROC: 3E033NZ Introduction of Analgesics, Hypnotics, Sedatives into Peripheral Vein, Percutaneous Approach (ICD-10-PCS; 2019-10-12)
DX: J06.9 Acute upper respiratory infection, unspecified (principal); Z21 Asymptomatic human immunodeficiency virus [HIV] infection status; Z87.19 Personal history of other diseases of the digestive system
CPT/HCPCS: 36415; 80053; 81003; 84703; 85027; 87086; 87804; 99284-25; J0131; J7030

== ENCOUNTER 2021-09-27 08:30 | Inpatient (IN) | payer OTHER ==
[2021-09-27 09:44] VITALS: BMI 32.0
[2021-09-27] MEDS ORDERED: CITRIC ACID/SODIUM CITRATE 30 ML UNIT-DOSE CUP PO ONE (10:00)
[2021-09-27] MEDS ORDERED: ELECTROLYTE-148 SOLN 1,000 ML IV SCH ×3 (10:00→12:15)
[2021-09-27] MEDS ORDERED: OXYTOCIN 20 UNITS in 0.9% NS 20 UNIT/1,000 ML INFUS.BAG IV ONE (12:37)
[2021-09-27] MEDS ORDERED: morphine SULFATE/PF 1 MG/2 ML (2cc Syringe - QUVA) ONE (12:40)
[2021-09-27] MEDS ORDERED: ePHEDrine SULFATE 50 MG/1 ML AMPULE ONE (12:40)
[2021-09-27] MEDS ORDERED: ceFAZolin SODIUM 1 GM VIAL ONE ×2 (12:54→17:44)
[2021-09-27] MEDS ORDERED: OXYTOCIN 10 UNITS/ML VIAL ONE (13:00)
[2021-09-27] MEDS ORDERED: ONDANSETRON 4 MG/2 ML VIAL ONE (13:08)
[2021-09-27 13:58] LABS: CORD HCO3 25.6 mmHg (20-29); CORD PCO2 57.6 mmHg (30-78); CORD pH 7.266 (7.14-7.44)
[2021-09-27] MEDS: OXYTOCIN 20 UNITS in 0.9% NS 20 UNIT/1,000 ML INFUS.BAG IV SCH ×2 (14:00→23:11)
[2021-09-27 14:01] LABS: CORD BASE EXCESS -2.1 mmol/L (0-2); CORD HCO3 23.4 mmHg (20-29); CORD PCO2 42.6 mmHg (30-78); CORD pH 7.358 (7.14-7.44)
[2021-09-27] MEDS ORDERED: BENZOCAINE 20% 57 GM BOTTLE TP PRN (14:10)
[2021-09-27] MEDS ORDERED: BENZOCAINE 28 GM HEMORRHOIDAL OINTMENT TP PRN (14:10)
[2021-09-27] MEDS ORDERED: IBUPROFEN 800 MG/8 ML IJ IVPB PRN (14:10)
[2021-09-27] MEDS ORDERED: METHYLERGONOVINE MALEATE 0.2 MG/1 ML AMP IM PRN (14:10)
[2021-09-27] MEDS ORDERED: WITCH HAZEL 50% (TUCKS) 40 PAD/JAR PAD TP PRN (14:10)
[2021-09-27] MEDS ORDERED: ONDANSETRON 4 MG/2 ML VIAL IVPUSH PRN (14:17)
[2021-09-27] MEDS ORDERED: IBUPROFEN 800 MG/8 ML IJ IVPB ONE (15:23)
[2021-09-27] MEDS ORDERED: ACETAMINOPHEN 1000 MG/100 ML BAG IVPB ONE (15:36)
[2021-09-27] MEDS ORDERED: DEXTROSE 5%-WATER - 50 ML IVPB ONE (17:44)
[2021-09-27] MEDS: CEFAZOLIN 1 GM in DEXTROSE 5%-WATER - 50 ML IVPB SCH (17:48)
[2021-09-27] MEDS: IBUPROFEN 600 MG TABLET (FP) PO PRN (21:32)
[2021-09-27] MEDS: SIMETHICONE 80 MG TAB.CHEW (FP) PO PRN (21:33)
[2021-09-28] MEDS ORDERED: ceFAZolin SODIUM 1 GM VIAL ONE ×2 (01:40→09:28)
[2021-09-28] MEDS ORDERED: DEXTROSE 5%-WATER - 50 ML IVPB ONE ×2 (01:40→09:28)
[2021-09-28] MEDS: IBUPROFEN 600 MG TABLET (FP) PO PRN ×6 (01:46→22:58)
[2021-09-28] MEDS: CEFAZOLIN 1 GM in DEXTROSE 5%-WATER - 50 ML IVPB SCH ×2 (01:46→09:32)
[2021-09-28] MEDS: SIMETHICONE 80 MG TAB.CHEW (FP) PO PRN ×4 (01:46→20:20)
[2021-09-28] MEDS ORDERED: oxyCODONE HCL 5 MG TABLET PO PRN ×2 (02:10)
[2021-09-28 08:55] LABS: BASO % 0.2 % (0-2.0); EOS % 3.3 % (0-4.5); HEMATOCRIT 28.6 % (32.4-45.2); HEMOGLOBIN 9.5 GM/dL (10.7-15.3); LYMPH % 22.1 % (8-40); MCH 26.3 pg (25.7-33.7); MCHC 33.3 g/dl (32.0-36.0); MEAN CELL VOLUME 79.1 fl (80-96); MEAN PLT VOLUME 8.9 fl (7.5-11.1); MONO % 8.2 % (3.8-10.2); NEUT % 66.2 % (42.8-82.8); PLATELET COUNT 168 10^3/uL (134-434); RBC 3.61 M/mm3 (3.60-5.2); RDW 14.3 % (11.6-15.6)
[2021-09-28] MEDS: ENOXAPARIN NA (PORCINE) 40 MG/0.4 ML DISP.SYRIN SQ SCH (09:33)
[2021-09-28] MEDS: PRENATAL VITAMINS W/ FOLIC ACID TABLET (FP) PO SCH (09:33)
[2021-09-28] MEDS ORDERED: PATIENT'S OWN MEDICATION (NON-FORMULARY) (Emtricitabine/Tenofovir (Tdf) [Truvada 100 Mg-15 PO SCH (10:00)
[2021-09-28] MEDS ORDERED: DOLUTEGRAVIR SODIUM PO SCH (10:00)
[2021-09-28] MEDS: ACETAMINOPHEN 325 MG TABLET (FP) PO PRN ×2 (15:10→20:20)
[2021-09-28] MEDS: OXYTOCIN 20 UNITS in 0.9% NS 20 UNIT/1,000 ML INFUS.BAG IV SCH (19:29)
[2021-09-28] MEDS: BISACODYL 10 MG SUPP.RECT RC PRN (20:43)
[2021-09-29] MEDS: SIMETHICONE 80 MG TAB.CHEW (FP) PO PRN ×3 (05:31→20:26)
[2021-09-29] MEDS: IBUPROFEN 600 MG TABLET (FP) PO PRN ×4 (05:31→21:11)
[2021-09-29] MEDS: BISACODYL 10 MG SUPP.RECT RC PRN (05:39)
[2021-09-29] MEDS: ACETAMINOPHEN 325 MG TABLET (FP) PO PRN ×2 (07:30→14:00)
[2021-09-29] MEDS: PRENATAL VITAMINS W/ FOLIC ACID TABLET (FP) PO SCH (10:22)
[2021-09-29] MEDS: ENOXAPARIN NA (PORCINE) 40 MG/0.4 ML DISP.SYRIN SQ SCH (10:25)
[2021-09-30] MEDS: IBUPROFEN 600 MG TABLET (FP) PO PRN ×2 (02:48→08:47)
[2021-09-30] MEDS: SIMETHICONE 80 MG TAB.CHEW (FP) PO PRN ×2 (02:48→08:45)
[2021-09-30 06:49] LABS: BASO % 0.3 % (0-2.0); EOS % 5.6 % (0-4.5); HEMATOCRIT 27.2 % (32.4-45.2); LYMPH % 30.8 % (8-40); MCH 26.3 pg (25.7-33.7); MCHC 33.1 g/dl (32.0-36.0); MEAN CELL VOLUME 79.2 fl (80-96); MONO % 6.6 % (3.8-10.2); NEUT % 56.7 % (42.8-82.8); PLATELET COUNT 234 10^3/uL (134-434); RBC 3.43 M/mm3 (3.60-5.2); RDW 14.5 % (11.6-15.6); WHITE BLOOD COUNT 6.3 K/mm3 (4.0-10.0)
[2021-09-30 10:37] VITALS: BP 129/95; PULSE 98; TEMP 98.7
[2021-09-30] MEDS: PRENATAL VITAMINS W/ FOLIC ACID TABLET (FP) PO SCH (10:53)
[2021-09-30] MEDS: ENOXAPARIN NA (PORCINE) 40 MG/0.4 ML DISP.SYRIN SQ SCH (10:54)
== END 2021-09-30 12:35 | disposition home or self-care (01) | DRG 787 ==
LOC: JLDR 08:30 → J3W 16:15
PROVIDERS: ADMIT Obstetrics & Gynecology; ATTEND Obstetrics & Gynecology
PROC: 10D00Z1 Extraction of Products of Conception, Low, Open Approach (ICD-10-PCS; principal; 2021-09-27)
DX: O34.211 Maternal care for low transverse scar from previous cesarean delivery (principal); O98.72 Human immunodeficiency virus [HIV] disease complicating childbirth; O69.81X0 Labor and delivery complicated by cord around neck, without compression, not applicable or unspecified; Z3A.39 39 weeks gestation of pregnancy; Z37.0 Single live birth
CPT/HCPCS: 36415; 36600; 82803; 85025

== ENCOUNTER 2021-10-03 20:49 | Emergency (ER) | payer OTHER ==
[2021-10-03 21:00] VITALS: BMI 31.8
[2021-10-03] MEDS ORDERED: ACETAMINOPHEN 1000 MG/100 ML BAG IVPB ONE (22:23)
[2021-10-03] MEDS ORDERED: ACETAMINOPHEN INJECTION 100 ML IVPB ONE (23:13)
[2021-10-03] MEDS ORDERED: LABETALOL HCL 5 MG/1 ML (100MG/20 ML VIAL) IVPUSH ONE (23:19)
[2021-10-03 23:38] VITALS: PULSE 82; TEMP 101.4
[2021-10-03 23:39] LABS: BASO % 1.9 % (0-2.0); LYMPH % 17.6 % (8-40); MCH 25.8 pg (25.7-33.7); MCHC 32.2 g/dl (32.0-36.0); MEAN CELL VOLUME 80.1 fl (80-96); MEAN PLT VOLUME 7.6 fl (7.5-11.1); NEUT % 68.5 % (42.8-82.8); PLATELET COUNT 411 10^3/uL (134-434); RBC 3.87 M/mm3 (3.60-5.2); RDW 14.8 % (11.6-15.6); WHITE BLOOD COUNT 9.3 K/mm3 (4.0-10.0)
[2021-10-04] LABS: CALCIUM 8.8 mg/dL (8.5-10.1)
[2021-10-04 00:01] LABS: ALBUMIN 2.6 g/dl (3.4-5.0); BLOOD UREA NITROGEN 13.3 mg/dL (7-18)
[2021-10-04 00:04] LABS: CREATININE 0.7 mg/dL (0.55-1.3)
[2021-10-04 00:05] LABS: TOT PROT 7.6 g/dl (6.4-8.2)
[2021-10-04 00:05] LABS: EPI CELLS 9 /uL (0-25.1); HYALINE CASTS 1 /uL (0-3.1); PH,URINE 7.5 (5.0-8.0); URINE APPEARANCE CLEAR; URINE BACTERIA 17 /uL (0-1359); URINE BILIRUBIN NEGATIVE (NEGATIVE); URINE COLOR YELLOW; URINE GLUCOSE (UA) NEGATIVE (NEGATIVE); URINE KETONE NEGATIVE (NEGATIVE); URINE LEUK ESTERASE 2+ (NEGATIVE); URINE NITRITE NEGATIVE (NEGATIVE); URINE PROTEIN NEGATIVE (NEGATIVE); URINE RBC 115 /uL (0-23.9); URINE UROBILINOGEN 0.2 mg/dL (0.2-1.0); URINE WBC 78 /uL (0-25.8)
[2021-10-04 00:06] LABS: BILIRUBIN,TOTAL 0.2 mg/dL (0.2-1)
[2021-10-04 00:25] VITALS: BP 140/91
[2021-10-04] MEDS ORDERED: NIFEdipine E.R. 30 MG TABLET ONE (01:16)
[2021-10-04] MEDS ORDERED: NIFEdipine E.R. 30 MG TABLET PO ONE (01:28)
[2021-10-04] MEDS ORDERED: NIFEdipine 10 MG CAPSULE (FP) PO SCH (06:00)
[2021-10-04] MEDS ORDERED: NIFEdipine E.R. 30 MG TABLET PO SCH (10:00)
== END 2021-10-04 01:29 | disposition home or self-care (01) ==
LOC: JER 20:49
PROC: 3E033GC Introduction of Other Therapeutic Substance into Peripheral Vein, Percutaneous Approach (ICD-10-PCS; principal; 2021-10-03)
DX: O07.1 Delayed or excessive hemorrhage following failed attempted termination of pregnancy (principal); O14.95 Unspecified pre-eclampsia, complicating the puerperium
CPT/HCPCS: 36415; 80053; 81003; 85025; 87086; 93971-TC; 99284-25; C9803; J0131; U0003; U0005